=== PATIENT | female | born 1960 | race Caucasian/White ===

== ENCOUNTER 2016-12-03 09:00 | Emergency (ER) | payer BC, MEDICAID ==
[~2016-12-03] VITALS: Ht 165.1 cm; Wt 65.0 kg
[2016-12-03] MEDS ORDERED: ONDANSETRON 4MG ODT PO ONE ×2 (09:45→11:00)
[2016-12-03] MEDS ORDERED: MORPHINE SULFATE 10 MG/ML CPJ IM ONE ×2 (09:45→11:00)
[2016-12-03] MEDS ORDERED: DIAZEPAM 5 MG TABLET PO ONE ×2 (09:45→11:00)
[2016-12-03 12:49] VITALS: BP 126/79
== END 2016-12-03 12:51 | disposition home or self-care (01) ==
LOC: ER 10:02
DX: G43.909 Migraine, unspecified, not intractable, without status migrainosus (principal); F17.210 Nicotine dependence, cigarettes, uncomplicated; Z90.710 Acquired absence of both cervix and uterus
CPT/HCPCS: 96372; 99284; J2270; Q0162; Z7610

== ENCOUNTER 2016-12-06 12:39 | Emergency (ER) | payer BC ==
[~2016-12-06] VITALS: Ht 165.1 cm; Wt 74.0 kg
[2016-12-06] MEDS ORDERED: MORPHINE SULFATE 4 MG/ML CPJ (NOT FOR IM USE) IV STA (14:07)
[2016-12-06] MEDS ORDERED: KETOROLAC 30MG/ML VIAL IV STA (14:07)
[2016-12-06] MEDS ORDERED: SODIUM CHLORIDE 0.9% 1,000 ML IV ONE (14:07)
[2016-12-06] MEDS ORDERED: ONDANSETRON HCL 4MG/2ML VIAL IV STA (14:07)
[2016-12-06] MEDS ORDERED: HYDRALAZINE 20MG/ML VIAL IV ONE (14:15)
[2016-12-06 14:43] LABS: BASOPHILS % 1.4 % (0.0-2.0); EOSINOPHILS % 4.1 % (0.0-5.0); HEMATOCRIT. 36.6 % (36.0-48.0); HEMOGLOBIN. 12.3 g/dL (12.0-16.0); LYMPHOCYTES % 37.2 % (20.0-50.0); MEAN CORPUSCULAR HEMOGLOBIN 27.2 pg (28.0-32.0); MEAN CORPUSCULAR VOLUME 81.3 fL (81.0-99.0); MEAN PLATELET VOLUME 8.2 fl (7.4-10.4); NEUTROPHILS % 51.3 % (40.0-76.0); PLATELET 210 x1000/uL (130-400); RED CELL DISTRIBUTION WIDTH 13.7 % (11.6-14.6)
[2016-12-06 14:58] LABS: CARBON DIOXIDE 27 mEq/L (21-32); CHLORIDE 105 mEq/L (98-107); ETHANOL BLOOD < 10 mg/dL
[2016-12-06 15:54] VITALS: BP 166/84
[2016-12-06 15:57] LABS: CLARITY URINE CLEAR (CLEAR); COLOR URINE YELLOW (YELLOW); GLUCOSE URINE NEGATIVE (NEGATIVE); KETONES URINE NEGATIVE (NEGATIVE); LEUKOCYTE ESTERASE URINE NEGATIVE (NEGATIVE); NITRITE URINE NEGATIVE (NEGATIVE); OCCULT BLOOD URINE NEGATIVE (NEGATIVE); PROTEIN URINE NEGATIVE (NEGATIVE); SPECIFIC GRAVITY URINE 1.007 (1.005-1.030); UROBILINOGEN URINE 0.2 E.U./dL (0.2-1.0)
[2016-12-06] MEDS ORDERED: HYDROCODONE/ACETAMINOPHEN 5/325MG TABLET PO ONE (16:45)
[2016-12-06 16:53] LABS: *AMPHETAMINES SCREEN URINE NEGATIVE (NEGATIVE); *BARBITURATES SCREEN URINE NEGATIVE (NEGATIVE); *BENZODIAZEPINES SCREEN URINE PRESUMTIVE POSITIVE (NEGATIVE); *COCAINE SCREEN URINE NEGATIVE (NEGATIVE); CANNABINOID URINE SCREEN NEGATIVE (NEGATIVE); METHADONE URINE SCREEN NEGATIVE (NEGATIVE); OPIATES URINE SCREEN PRESUMTIVE POSITIVE (NEGATIVE); PHENCYCLIDINE URINE SCREEN NEGATIVE (NEGATIVE)
== END 2016-12-06 17:13 | disposition home or self-care (01) ==
LOC: ER 13:47
DX: G43.909 Migraine, unspecified, not intractable, without status migrainosus (principal); I10 Essential (primary) hypertension; F17.200 Nicotine dependence, unspecified, uncomplicated
CPT/HCPCS: 36415; 70450; 80053; 80305; 81003; 85025; 96361; 96374; 96375; 99285; G0482; J0360; J1885; J2270; J2405; J7030; Z7610; 96376

== ENCOUNTER 2017-10-01 17:52 | Emergency (ER) | payer SELFPAY ==
[~2017-10-01] VITALS: Ht 165.1 cm; Wt 74.0 kg
[2017-10-01 18:16] VITALS: BP 149/86
== END 2017-10-01 21:50 | disposition left against medical advice (07) ==
LOC: ER 21:40
DX: Z53.21 Procedure and treatment not carried out due to patient leaving prior to being seen by health care provider (principal)